=== PATIENT | female | born 1960 | race Caucasian/White ===

== ENCOUNTER 2016-10-08 02:15 | Emergency (ER) | payer OTHER, MEDICARE ==
[~2016-10-08] VITALS: Ht 160 cm; Wt 63.5 kg
--- NOTE | ~2016-10-08 | CR282 ---
[facility] A Service of [facility] & [facility] RADIOLOGY TEXT RESULTS PATIENT: FARZANEH SOLANO LOCATION: [facility] : 62 UNIT #: [id number] AGE: [address]: Caleb Allen MD SEX: F ORDER DR: [id number] [facility] [address] [place], [place] [address] [id number] E MR#: [id number] #: [id number] NAME: FARZANEH SOLANO : 1960 SEX: F STUDY DATE/TIME: 10/08/2016 3:22 UNIT: [facility] ROOM: STUDY DESCRIPTION: CR Wrist Min 3 View Rt Attending Physician: Caleb Allen M.D. Ordering Physician: Caleb Allen M.D. Primary Care Physician: Primary Care Physician No MEDICAL IMAGING REPORT This report is preliminary unless electronic signature is present EXAM Right wrist, 3 views. HISTORY Chronic wrist pain. No injury. FINDINGS Three views of the right wrist demonstrate satisfactory bone alignment. Generalized demineralization. Soft tissue swelling about the wrist. No fracture or bone destruction. IMPRESSION 1. No fracture. 2. Satisfactory bone alignment. 3. Soft tissue swelling about the wrist. Dictated by... Jaskaran Cruz M.D. THIS IS AN ELECTRONICALLY VERIFIED REPORT Jaskaran Cruz M.D. at 10/09/2016 10:25 PM DFL/juan diego TD: 10/09/2016 00:06 JOB #: [id number] MEDICAL IMAGING REPORT Page 1 of 1 COPY
[~2016-10-08 02:15] MED LIST: ACETAMINOPHEN325 MG PO; ALBUTEROL17 GM INH; ARTHRITIS MED; ASPIRIN EC81 M1 PO; BACTRIM DS TABL1 TA1 PO; CIPRO PO; CLINDAMYCIN HC300 MG PO; DAKIN'S MODIF1000 ML TOP; DOXYCYCLINE HY100 M3 PO; EC-NAPROSYN500 MG PO; FOLIC ACID1 MG PO; HYDROXYZINE HCL25 M1 PO; LORCET 5-325 M1 EACH PO; METHOTREXATE2.5 MG PO; MILK OF MAGNESIA PO; MOBIC PO; NORCO1 TAB 10/3 PO; PAROXETINE HCL40 M1 PO; PAXIL PO; PAXIL40 MG PO; PERCOCET 7.5/321 TAB PO; PREDNISONE PO; PRILOSEC PO; PROAIR HFA8.5 GM IH; PROTONIX PO; THIAMINE HCL100 M1 PO; VIBRAMYCIN100 M1 PO
== END 2016-10-08 07:05 | disposition home or self-care (01) ==
LOC: CED 02:15
DX: S61.511A Laceration without foreign body of right wrist, initial encounter (principal); J45.909 Unspecified asthma, uncomplicated; Z88.0 Allergy status to penicillin; Z79.899 Other long term (current) drug therapy; Z79.82 Long term (current) use of aspirin; X58.XXXA Exposure to other specified factors, initial encounter; Y92.009 Unspecified place in unspecified non-institutional (private) residence as the place of occurrence of the external cause
CPT/HCPCS: 12001; 73110; 99283